=== PATIENT | female | born 2000 | race American Indian/Alaskan Native ===

== ENCOUNTER 2018-04-06 14:04 | Emergency (ER) | payer MEDICAID ==
[2018-04-06 14:40] VITALS: BMI 42.3
[2018-04-06 14:56] VITALS: RESP 18; TEMP 98.2
--- NOTE | 2018-04-06 15:08 | ED PDOC ---
Arrival/HPI - General Historian: Patient - History of Present Illness Narrative History of Present Illness (Text): 04/06/18 15:06 17yo morbidly obese female with no pmhx who present with complaint of right ankle pain s/p trauma. states she heard a "popping" sound last night when she twisted her ankle . Reports pain with ambulation. did not take any medication. Denies any other complaint. <Barry Merritt A - Last Filed: 04/06/18 19:34> <Yoshi Wilkinson - Last Filed: 04/07/18 07:29> - General Chief Complaint: Lower Extremity Problem/Injury Time Seen by Provider: 04/06/18 14:45 Past Medical History - Provider Review Nursing Documentation Reviewed: Yes - Psychiatric Hx Substance Use: No <Barry Merritt A - Last Filed: 04/06/18 19:34> Family/Social History - Physician Review Nursing Documentation Reviewed: Yes Family/Social History: Unknown Family HX Smoking Status: Never Smoked Hx Alcohol Use: No Hx Substance Use: No <Barry Merritt A - Last Filed: 04/06/18 19:34> Allergies/Home Meds <Barry Merritt A - Last Filed: 04/06/18 19:34> <Yoshi Wilkinson - Last Filed: 04/07/18 07:29> Allergies/Adverse Reactions: Allergies No Known Allergies Allergy (Verified 04/06/18 14:39) Review of Systems - Physician Review All systems were reviewed & negative as marked: Yes - Review of Systems Constitutional: Normal Eyes: Normal ENT: Normal Respiratory: Normal Cardiovascular: Normal Gastrointestinal: Normal Genitourinary Female: Normal Musculoskeletal: Arthralgias (Right ankle) Skin: Normal Neurological: Normal Endocrine: Normal Hemo/Lymphatic: Normal Psychiatric: Normal <Barry Merritt A - Last Filed: 04/06/18 19:34> Physical Exam Vital Signs Reviewed: Yes Vital Signs Temp Pulse Resp BP Pulse Ox 04/06/18 14:56 98.2 F 82 18 121/67 98 Temperature: Afebrile Blood Pressure: Normal Pulse: Regular Respiratory Rate: Normal Appearance: Positive for: Well-Appearing, Non-Toxic, Comfortable Pain Distress: None Mental Status: Positive for: Alert and Oriented X 3 - Systems Exam Head: Present: Atraumatic, Normocephalic Pupils: Present: PERRL Extroacular Muscles: Present: EOMI Conjunctiva: Present: Normal Mouth: Present: Moist Mucous Membranes Neck: Present: Normal Range of Motion Respiratory/Chest: Present: Clear to Auscultation, Good Air Exchange. No: Respiratory Distress, Accessory Muscle Use Cardiovascular: Present: Regular Rate and Rhythm, Normal S1, S2. No: Murmurs Abdomen: No: Tenderness, Distention, Peritoneal Signs Back: Present: Normal Inspection Upper Extremity: Present: Normal Inspection. No: Cyanosis, Edema Lower Extremity: Present: NORMAL PULSES, Tenderness (Over the anterior and medial left malleolus). No: Edema, Swelling Neurological: Present: GCS=15, CN II-XII Intact, Speech Normal Skin: Present: Warm, Dry, Normal Color. No: Rashes Psychiatric: Present: Alert, Oriented x 3, Normal Insight, Normal Concentration <Diru,Happiness A - Last Filed: 04/06/18 19:34> Vital Signs Temp Pulse Resp BP Pulse Ox 04/06/18 15:30 75 18 118/64 100 04/06/18 14:56 98.2 F 82 18 121/67 98 <Yoshi Wilkinson - Last Filed: 04/07/18 07:29> Medical Decision Making ED Course and Treatment: 04/06/18 15:31 IMPRESSION: Marked soft tissue swelling. No acute displaced fracture, dislocation, or significant joint effusion identified. If symptoms persist or if there is clinical concern, x-ray follow-up in 7-10 days should be considered. 04/06/18 19:29 Result was DW pt and her mother Air cast placed and crutches given Advised to rice ankle Referred to ortho TRT ED for any new or worsening symptoms - RAD Interpretation Radiology Orders: 04/06/18 14:45 ANKLE RIGHT 3 VIEWS ROUTINE [RAD] Stat <Diru,Happiness A - Last Filed: 04/06/18 19:34> - RAD Interpretation Radiology Orders: 04/06/18 14:45 ANKLE RIGHT 3 VIEWS ROUTINE [RAD] Stat - Medication Orders Current Medication Orders: Discontinued Medications Ibuprofen (Motrin Tab) 400 mg PO STAT STA Stop: 04/06/18 15:12 Last Admin: 04/06/18 15:55 Dose: 400 mg MAR Pain/Vitals Document 04/06/18 15:55 LA (Rec: 04/06/18 15:55 LA [id number]) Pain Reassessment Is This A Pain ReAssessment? No Sleep Is patient sleeping during reassessment? No Presence of Pain Presence of Pain Yes Pain Scale Used Protocol: PSCALES Pain Scale Used Numeric Location Left, Right or Bilateral Right Pain Location Body Site Ankle Intensity 5 <Yoshi Wilkinson - Last Filed: 04/07/18 07:29> - PA / [employer] / Resident Statement MD/DO has reviewed & agrees with the documentation as recorded. <Yoshi Wilkinson - Last Filed: 04/07/18 07:29> Disposition/Present on Arrival - Present on Arrival Any Indicators Present on Arrival: No History of DVT/PE: No History of Uncontrolled Diabetes: No Urinary Catheter: No History of Decub. Ulcer: No History Surgical Site Infection Following: None - Disposition Have Diagnosis and Disposition been Completed?: Yes Disposition Time: 15:35 Patient Plan: Discharge <Barry Merritt - Last Filed: 04/06/18 19:34> <Yoshi Wilkinson - Last Filed: 04/07/18 07:29> - Disposition Diagnosis: Ankle sprain Disposition: HOME/ ROUTINE Condition: STABLE Discharge Instructions (ExitCare): Ankle Sprain (DC) Additional Instructions: Rest, ice compress and elevate ankle Follow up with your Doctor/orthopedist Return to ED for any new or worsening symptoms Prescriptions: Ibuprofen [Ibu] 400 mg PO Q6 #15 tablet Referrals: Femi Giron III, MD [Medical Doctor] - Follow up with primary Forms: [facility] ([place]), SCHOOL NOTE, WORK NOTE
--- NOTE | 2018-04-06 15:23 | RAD ---
PROCEDURE: Right Ankle Radiographs. HISTORY: ankle pain COMPARISON: None available. FINDINGS: BONES: No acute displaced fracture. JOINTS: No dislocation. SOFT TISSUES: Soft tissue swelling. No evidence of radiopaque foreign body. OTHER FINDINGS: None. IMPRESSION: Marked soft tissue swelling. No acute displaced fracture, dislocation, or significant joint effusion identified. If symptoms persist or if there is clinical concern, x-ray follow-up in 7-10 days should be considered.
[2018-04-06 15:31] VITALS: BP 118/64; PULSE 75; O2SAT 100
== END 2018-04-07 01:09 | disposition home or self-care (01) ==
LOC: ED 14:04
DX: S93.401A Sprain of unspecified ligament of right ankle, initial encounter (principal); X50.1XXA Overexertion from prolonged static or awkward postures, initial encounter; Y92.9 Unspecified place or not applicable